=== PATIENT | female | born 1980 | race Caucasian/White ===

== ENCOUNTER 2018-04-02 07:37 | Emergency (ER) | payer BC ==
--- OUTSIDE RECORDS SUMMARY | 2018-04-02 07:43 | XMS REPORT ---
:1980 External Reference #:[id number] Author Organization [facility] Address [address] [place] [address] Phone [phone] Care Team Providers Name Role Phone Preston Hutchinson D.O. 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 Primary Care Physician Unavailable Payers Type Date Identification Numbers Payment Provider Subscriber Commercial Policy Number: [id number] GRACE Zora Cat PayID: [id number] [address] [address] [place] [address] Problems Description No Information Family History Date Family Member(s) Problem(s) Comments Father Hypertension Mother due to Ovarian Cancer () Social History Type Date Description Comments Cigarette Use Never Smoked Cigarettes ETOH Use Current Alcohol Use - 1-3 Days A Week. Recreational Drug Use Never Used Drugs Allergies, Adverse Reactions, Alerts Date Description Reaction Status Severity Comments 11/27/2017 NKDA active Medications Medication Date Status Form Strength Qnty SIG Indications Ordering Provider Percocet Active Tablets 5-325mg 20tabs 1-2 by Walker, 018 mouth Villa, four M.D. times a day as needed for pain Vitamin C Active Capsules Unknown 000 Ambien Active Tablets 5mg 1 tab by Unknown 000 mouth at time of the sleep study Mirena (52 MG) Active IUD 20mcg/24HR Unknown 000 Topiramate ER Active CS24 150mg Unknown 000 Citalopram Active Tablets 40mg 1 by Unknown Hydrobromide 000 mouth every day Xanax Active Tablets Unknown 000 Latoya Allergy Active Tablets Unknown 000 Multivitamin Active Tablets Unknown Adult 000 Fish Oil 00/00/0 Active Capsules 1 by Unknown 000 mouth every day Fiber Active Tablets Unknown 000 Azelastine HCL Active Solution Unknown (Nasal) 000 Sumatriptan Active Tablets Unknown Succinate 000 Vital Signs Date Vital Result Comment 02/26/2018 Weight 190.00 lb Height 65 inches 5'5" BMI (Body Mass Index) 31.6 kg/m2 BP Systolic 140 mmHg pt states she has been stressed this week BP Diastolic 111 mmHg pt states she has been stressed this week Heart Rate 97 /min O2 % BldC Oximetry 98 % Body Temperature 99.1 F Pain Level 2 02/12/2018 Weight 185.00 lb Height 65 inches 5'5" BMI (Body Mass Index) 30.8 kg/m2 BP Systolic 134 mmHg BP Diastolic 106 mmHg Heart Rate 77 /min O2 % BldC Oximetry 98 % Body Temperature 99.4 F Pain Level 3 sinus 01/25/2018 Height 65 inches 5'5" 11/27/2017 Weight 182.00 lb Height 62 inches 5'2" BMI (Body Mass Index) 33.3 kg/m2 BP Systolic 133 mmHg BP Diastolic 95 mmHg Heart Rate 70 /min O2 % BldC Oximetry 98 % Body Temperature 99.6 F Pain Level 0 Results Description No Information Procedures Date CPT Code Description Status 02/03/2018 60741 Stereotactic Computer-Assisted, Cranial, Extradural Completed 02/03/2018 59005 Nasal/Sinus Endosc.W.Explor. Completed 02/03/2018 50548 Nasal/Sinus Endo Inc Sphenoido Completed 02/03/2018 42015 Nasal/Sinus Endosc.W.Max.Antrost. Completed 02/03/2018 17557 Septoplasty Completed 02/03/2018 23008 Submucous Resect.Turb.Par Or Comp Completed 02/03/2018 59344 Anesthesia, Nose & Accessory Sinus Surgery Not Completed Otherwise Spec 11/27/2017 68585 Nasal Endoscopy, Diag. Completed Encounters Type Date Location Provider CPT E/M Office Visit 11/27/2017 12:15p [facility] [place] Walker M.D. [id number]
[2018-04-02 07:54] VITALS: BP 129/82
[2018-04-02] MEDS ORDERED: Tetan/Diph/Pertus SYR(Tdap)* 0.5 ML SYR(BOOSTRIX) use SYR IM ONE (08:04)
[2018-04-02] MEDS ORDERED: Lidocaine 1%* 5 ML VIAL INJ ONE (08:04)
--- NOTE | 2018-04-02 08:11 | UC ---
Laceration HPI - HPI Summary HPI Summary: While doing dishes last night a ceramic dish broke and patient sustained a laceration to the back side of her left hand. This morning it was still bleeding so she came in for evaluation. - History Of Current Complaint Chief Complaint: UCLaceration Stated Complaint: HAND LAC Time Seen by Provider: 04/02/18 07:54 Hx Obtained From: Patient Hx Last Menstrual Period: irreg. Laceration Location: Hand - LEFT Mechanism Of Injury: Sharp Trauma Onset/Duration: Sudden Onset, Lasting Hours, Still Present Severity: Moderate Pain Intensity: 0 Pain Scale Used: 0-10 Numeric Related History: Dominant Hand Right - Allergies/Home Medications Allergies/Adverse Reactions: Allergies Allergy/AdvReac Type Severity Reaction Status Date / Time SEASONAL ALLERGIES Allergy Congestion Uncoded 04/02/18 07:45 PMH/Surg Hx/FS Hx/Imm Hx Neurological History: Migraine Psychological History: Anxiety, Depression - Surgical History Surgical History: Yes Surgery Procedure, Year, and Place: WISDOM TOOTH REMOVED 2011. functional endoscopic sinus surgery - and repair of deviated septum February 03, 2018 - Family History Known Family History: Positive: Hypertension - Social History Alcohol Use: Occasionally Alcohol Amount: 3 DRINKS A MONTH Substance Use Type: None Smoking Status (MU): Former Smoker Type: Cigarettes Amount Used/How Often: 1 PACK A MONTH X 1-2 YRS Length of Time of Smoking/Using Tobacco: 15 years Have You Smoked in the Last Year: No When Did the Patient Quit Smoking/Using Tobacco: 2009 Review of Systems Constitutional: Negative Skin: Other - LACERATION LEFT HAND ENT: Sinus Congestion, Other - EAR FULLNESS Respiratory: Negative Cardiovascular: Negative Gastrointestinal: Negative All Other Systems Reviewed And Are Negative: Yes Physical Exam Triage Information Reviewed: Yes Appearance: Well-Appearing, No Pain Distress, Well-Nourished Vital Signs: Initial Vital Signs Temp 96.4 F 04/02/18 07:50 Pulse 98 04/02/18 07:50 Resp 18 04/02/18 07:50 BP 129/82 04/02/18 07:50 Pulse Ox 99 04/02/18 07:50 Vital Signs Reviewed: Yes Eyes: Positive: Conjunctiva Clear ENT: Positive: Hearing grossly normal, TMs normal Neck: Positive: Supple Respiratory: Positive: No respiratory distress, No accessory muscle use Cardiovascular: Positive: Pulses Normal Abdomen Description: Positive: Soft Musculoskeletal: Positive: No Edema Neurological: Positive: Alert Psychological: Positive: Age Appropriate Behavior Skin: Positive: Other - 2.5CM IRREGULAR LACERATION DORSAL SURFACE LEFT HAND JUST PROXIMAL TO 4TH AND 5TH MCP JOINTS Laceration Repair - Laceration Repair 1 Description: Irregular Laceration Size After Repair: Length (cm) - 2.5cm, Width (mm) - 0mm, Depth (mm) - 2mm Modified For Repair: No Type Injection: Local Anesthesia Used: 1.0% Lido Irrigation With Pressure Irrigation Device: Yes Closure Material: Sutures - 6 simple interrupted Closure Method: Single Layer Suture Of: Skin Suture Type: Prolene - 5-0 prolene Laceration Course/Dx - Course/Dx Course Of Treatment: LACERATION REPAIRED. PT ALSO REQUESTING EARS TO BE EXAMINED FOR FLUID. WAS SEEN AT AN OUTSIDE FACILITY 3 DAYS AGO AND TOLD SHE HAD FLUID IN HER EARS. ON EXAM - NO FLUID SEEN. PT HAS PCP F/U IN 2 WEEKS. - Differential Dx - Laceration/Wound Provider Diagnoses: LACERATION REPAIR LEFT HAND Discharge - Sign-Out/Discharge Documenting (check all that apply): Patient Departure All imaging exams completed and their final reports reviewed: No Studies - Discharge Plan Condition: Stable Disposition: HOME Prescriptions: Cephalexin CAP* [Keflex 500 CAP*] 500 mg PO BID #10 cap Patient Education Materials: Laceration (ED) Referrals: Preston Hutchinson DO [Primary Care Provider] - If Needed Additional Instructions: KEEP DRESSINGS IN PLACE AND DRY FOR THE FIRST 24 HRS. THEN YOU MAY REMOVE THE DRESSING AND GENTLY CLEANSE WITH SOAP AND WATER. PAT DRY AND RE-BANDAGE. APPLY THIN LAYER ANTIBIOTIC OINTMENT UNDER BANDAGE FOR FIRST 3-4 DAYS ONLY. CHANGE BANDAGE DAILY AND NEEDED IF IT BECOMES SOILED OR WET. SEEK FOLLOW-UP IF YOU DEVELOP SPREADING REDNESS OF THE SKIN, PURULENT DRAINAGE, FEVER, INCREASED PAIN OR ANY OTHER CONCERNING SYMPTOMS. RETURN TO HAVE YOUR SUTURES REMOVED IN 10 DAYS - Billing Disposition and Condition Condition: STABLE Disposition: Home
== END 2018-04-02 08:45 | disposition home or self-care (01) ==
LOC: UCEAST 07:37
DX: S61.412A Laceration without foreign body of left hand, initial encounter (principal); W25.XXXA Contact with sharp glass, initial encounter; Y93.G1 Activity, food preparation and clean up; Y92.000 Kitchen of unspecified non-institutional (private) residence as the place of occurrence of the external cause; Z87.891 Personal history of nicotine dependence
CPT/HCPCS: 12001; 90471; 90715; 99212; G0463

== ENCOUNTER 2018-04-12 17:18 | Emergency (ER) | payer BC ==
[2018-04-12 17:39] VITALS: BP 132/86
--- NOTE | 2018-04-12 18:15 | UC ---
Laceration HPI - HPI Summary HPI Summary: 37-year-old woman here for suture removal from a laceration on the whole left hand that was sutured 10 days ago. 6 sutures and there. No signs of infection. He she did hit it about 4 days ago and it did bleed a little bit. Otherwise everything has been fine. - History Of Current Complaint Chief Complaint: UCUpperExtremity Stated Complaint: STITCHES REMOVAL Time Seen by Provider: 04/12/18 18:02 Hx Last Menstrual Period: IUD Pain Intensity: 0 - Allergies/Home Medications Allergies/Adverse Reactions: Allergies Allergy/AdvReac Type Severity Reaction Status Date / Time SEASONAL ALLERGIES Allergy Congestion Uncoded 04/12/18 17:39 PMH/Surg Hx/FS Hx/Imm Hx - Additional Past Medical History Additional PMH: LACERATION - Surgical History Surgical History: Yes Surgery Procedure, Year, and Place: WISDOM TOOTH REMOVED 2011. functional endoscopic sinus surgery - and repair of deviated septum February 03, 2018 - Family History Known Family History: Positive: Hypertension Family History: NON CONTRIBUTORY - Social History Alcohol Use: Occasionally Alcohol Amount: 3 DRINKS A MONTH Substance Use Type: None Smoking Status (MU): Former Smoker Type: Cigarettes Amount Used/How Often: 1 PACK A MONTH X 1-2 YRS Length of Time of Smoking/Using Tobacco: 15 years Have You Smoked in the Last Year: No When Did the Patient Quit Smoking/Using Tobacco: 2009 Review of Systems Constitutional: Negative Skin: Other - See history present illness Eyes: Negative ENT: Negative Respiratory: Negative Cardiovascular: Negative Gastrointestinal: Negative Motor: Negative Neurovascular: Negative Musculoskeletal: Negative Neurological: Negative Psychological: Negative Is Patient Immunocompromised?: No All Other Systems Reviewed And Are Negative: Yes Physical Exam Triage Information Reviewed: Yes Appearance: Well-Appearing, No Pain Distress, Well-Nourished Vital Signs: Initial Vital Signs Temp 98.5 F 04/12/18 17:34 Pulse 89 04/12/18 17:34 Resp 16 04/12/18 17:34 BP 132/86 04/12/18 17:34 Pulse Ox 98 04/12/18 17:34 Vital Signs Reviewed: Yes Eyes: Positive: Conjunctiva Clear Neck exam: Normal Neck: Positive: Supple Respiratory: Positive: No respiratory distress Musculoskeletal Exam: Normal Musculoskeletal: Positive: Strength Intact, ROM Intact Neurological Exam: Normal Neurological: Positive: Alert Psychological Exam: Normal Psychological: Positive: Age Appropriate Behavior Skin: Positive: Other - Dorsum of the left hand over the fifth knuckle has a healed laceration with 6 sutures in it. I removed all 6. No erythema. No drainage no streaking. Laceration Course/Dx - Differential Dx - Laceration/Wound Provider Diagnoses: SUTURE REMOVAL LEFT HAND Discharge - Sign-Out/Discharge Documenting (check all that apply): Patient Departure All imaging exams completed and their final reports reviewed: No Studies - Discharge Plan Condition: Stable Disposition: HOME Patient Education Materials: Stitches Removal (ED) Referrals: Preston Hutchinson DO [Primary Care Provider] - Additional Instructions: FOLLOW UP WITH YOUR DOCTOR IF NOT COMPLETELY IMPROVED. GET RECHECKED FOR ANY WORSENING OF YOUR CONDITION OR QUESTIONS OR CONCERNS. - Billing Disposition and Condition Condition: STABLE Disposition: Home
== END 2018-04-12 18:36 | disposition home or self-care (01) ==
LOC: UCEAST 17:18
DX: S61.412D Laceration without foreign body of left hand, subsequent encounter (principal); X58.XXXD Exposure to other specified factors, subsequent encounter; Z87.891 Personal history of nicotine dependence
CPT/HCPCS: 99212; G0463

== ENCOUNTER 2018-08-05 13:31 | Emergency (ER) | payer BC ==
[2018-08-05 14:02] VITALS: BP 129/86
--- NOTE | 2018-08-05 16:39 | UC ---
Abdominal Pain Female HPI - HPI Summary HPI Summary: 37-year-old female here with a chief complaint of left lower quadrant abdominal pain. Some been going on for 3 weeks. She woke up the night with the pain. Pain is fairly constant it's about a 4 out of 10. No fevers or chills she's been eating and drinking fine normal bowel movements. She does have an IUD. No abnormal vaginal discharge. She does have having occasional dysuria. She was at her [facility] yesterday and reports a normal transvaginal ultrasound with the IUD in place. No diarrhea no blood in stool. No prior abdominal surgeries. Pain stays fairly constant. It is not worse with movement OR leg raising her leg. - History of Current Complaint Chief Complaint: UCAbdominalPain Stated Complaint: LOWER L ABD PAIN Time Seen by Provider: 08/05/18 14:51 Hx Last Menstrual Period: 07/13/18 Pain Intensity: 4 Allergies/Adverse Reactions: Allergies Allergy/AdvReac Type Severity Reaction Status Date / Time SEASONAL ALLERGIES Allergy Congestion Uncoded 08/05/18 14:03 Home Medications: Home Medications Ascorbic Acid TAB* [Vitamin C TAB*] 500 mg PO DAILY 08/05/18 [History Confirmed 08/05/18] Cholecalciferol TAB* [Vitamin D TAB*] 1,000 unit PO DAILY 08/05/18 [History Confirmed 08/05/18] Multivitamins/Minerals TAB* [Theragran/minerals TAB*] 1 tab PO DAILY 08/05/18 [ History Confirmed 08/05/18] Psyllium Husk [Sm Fiber] 400 mg PO DAILY 08/05/18 [History Confirmed 08/05/18] PMH/Surg Hx/FS Hx/Imm Hx Previously Healthy: Yes - Surgical History Surgical History: Yes Surgery Procedure, Year, and Place: WISDOM TOOTH REMOVED 2011. functional endoscopic sinus surgery - and repair of deviated septum February 03, 2018 - Family History Known Family History: Positive: Hypertension Family History: NON CONTRIBUTORY - Social History Alcohol Use: Occasionally Alcohol Amount: 3 DRINKS A MONTH Substance Use Type: None Smoking Status (MU): Former Smoker Type: Cigarettes Amount Used/How Often: 1 PACK A MONTH X 1-2 YRS Length of Time of Smoking/Using Tobacco: 15 years Have You Smoked in the Last Year: No When Did the Patient Quit Smoking/Using Tobacco: 2009 Review of Systems All Other Systems Reviewed And Are Negative: Yes Constitutional: Positive: Negative Skin: Positive: Negative Eyes: Positive: Negative ENT: Positive: Negative Respiratory: Positive: Negative Cardiovascular: Positive: Negative Gastrointestinal: Positive: Abdominal Pain Genitourinary: Positive: Dysuria. Negative: Hematuria, Frequency, Vaginal/ Penile Discharge Motor: Positive: Negative Neurovascular: Positive: Negative Musculoskeletal: Positive: Negative Neurological: Positive: Negative Psychological: Positive: Negative Is Patient Immunocompromised?: No Physical Exam Triage Information Reviewed: Yes Appearance: Well-Appearing, No Pain Distress, Well-Nourished Vital Signs: Initial Vital Signs Temp 98 F 08/05/18 13:59 Pulse 74 08/05/18 13:59 Resp 16 08/05/18 13:59 BP 129/86 08/05/18 13:59 Pulse Ox 100 08/05/18 13:59 Vital Signs Reviewed: Yes Eye Exam: Normal Eyes: Positive: Conjunctiva Clear Neck exam: Normal Neck: Positive: Supple Respiratory: Positive: Lungs clear, Normal breath sounds, No respiratory distress Cardiovascular: Positive: RRR Abdomen Description: Positive: Soft, Other: - MILD TENDERNESS TO PALPATION LLQ. NO REBOUND. NO MASS PALPATED.. Negative: CVA Tenderness (R), CVA Tenderness (L) Musculoskeletal Exam: Normal Musculoskeletal: Positive: Strength Intact, ROM Intact Neurological Exam: Normal Neurological: Positive: Alert, Muscle Tone Normal Psychological Exam: Normal Psychological: Positive: Age Appropriate Behavior Skin Exam: Normal Abd Pain Female Course/Dx - Course Course Of Treatment: Order Information: CT ABD/PEL W/O. Accession Number: [id number]. CPT: 57416. CLINICAL HISTORY: LLQ PAIN. COMPARISON: None. TECHNIQUE: Multiple contiguous axial CT scans were obtained of the abdomen and pelvis,. without intravenous contrast enhancement. Coronal and sagittal multiplanar reformations. are submitted for review. Oral contrast was not administered. FINDINGS: LUNG BASES: The lung bases are clear. LIVER: The liver is normal in shape, size, contour, and attenuation. BILE DUCTS: There is no intrahepatic or extrahepatic biliary dilatation. GALLBLADDER: The gallbladder is normal, without pericholecystic inflammatory change. PANCREAS: The pancreas is normal, without mass or ductal dilatation. SPLEEN: Normal in size and appearance. UPPER GI TRACT: Evaluation of the gastrointestinal tract is limited by incomplete gastric. distention. The upper GI tract is unremarkable. SMALL BOWEL AND MESENTERY: The small bowel is normal in contour, course, and caliber. There is no obstruction or dilatation. COLON: The colon is normal in contour, course, caliber. There is no pericolonic. inflammatory change. ADRENALS: Normal bilaterally. KIDNEYS: The kidneys are normal in shape , size, contour, and axis. There is no. hydronephrosis or nephrolithiasis. BLADDER: The bladder is smooth in contour. PELVIC ORGANS: The uterus and adnexa are grossly normal for technique. An IUD is noted. AORTA: The aorta is normal. IVC: Unremarkable. LYMPH NODES: There is no lymphadenopathy by size criteria. ABDOMINAL WALL: There is no evidence for abdominal wall hernia. BONES AND SOFT TISSUES: Unremarkable. OTHER: None. IMPRESSION: NO HYDRONEPHROSIS OR NEPHROLITHIASIS. NO ACUTE CT PATHOLOGY OF THE VISUALIZED ABDOMEN OR. PELVIS. __. <Electronically signed by Robert Moreno MD in OV> 08/05/18 9945. I discussed the CT report with the patient. Patient had a normal transvaginal ultrasound yesterday. At this time it's not clear cause of the left lower quadrant abdominal pain. Family now is to check a CRP CBC and CMP. Urine was normal. Plan will be to continue use ibuprofen and/or acetaminophen for pain and follow-up with her primary care doctor and her [facility]. At the patient know if she worsens or has any other questions or concerns she needs to be reevaluated right away and if she is getting worse emergency department is the best place for that. - Differential Dx/Diagnosis Provider Diagnosis: Abdominal pain, left lower quadrant Discharge - Sign-Out/Discharge Documenting (check all that apply): Patient Departure All imaging exams completed and their final reports reviewed: Yes - Discharge Plan Condition: Stable Disposition: HOME Patient Education Materials: Acute Abdominal Pain (ED) Referrals: Preston Hutchinson DO [Primary Care Provider] - Antonella Anderson MD [Medical Doctor] - Additional Instructions: FOLLOW UP WITH YOUR PRIMARY CARE DOCTOR AND YOUR OBGYN. GO TO THE EMERGENCY DEPARTMENT FOR ANY WORSENING OF YOUR CONDITION; PAIN, FEVER , VOMITING, BLOOD IN YOUR URINE OR STOOL, YOU FEEL ILL OR QUESTIONS OR CONCERNS. - Billing Disposition and Condition Condition: STABLE Disposition: Home
[2018-08-06 10:45] LABS: ABS Basophils 0 10^3/ul (0-0.2); ABS Eosinophils 0.1 10^3/ul (0-0.6); ABS Lymphocytes 2.4 10^3/ul (1.0-4.8); ABS Monocytes 0.7 10^3/ul (0-0.8); ABS Neutrophils 6.1 10^3/ul (1.5-7.7); ABS Nucleated RBC 0 10^3/ul; Eosinophil % 0.9 %; Hematocrit 45 % (35-47); Hemoglobin 15.1 g/dl (12.0-16.0); Lymphocyte % 25.8 %; Mean Corpuscular HGB Conc 33 g/dl (31-36); Mean Corpuscular Hemoglobin 30 pg (27-31); Mean Corpuscular Volume 89 fL (80-97); Mean Platelet Volume 8.7 fL (7.4-10.4); Nucleated Red Blood Cells % 0.1; Platelet Count 298 10^3/ul (150-450); Red Blood Count 5.09 10^6/ul (4.00-5.40); Red Cell Distribution Width 13 % (10.5-15); White Blood Count 9.3 10^3/ul (3.5-10.8)
[2018-08-06 11:04] LABS: Albumin 4.3 g/dL (3.2-5.2); Albumin/Globulin Ratio 1.6 (1-3); BUN/Creatinine Ratio 28.6 (8-20); C Reactive Protein 5.97 mg/L (<8.01); Calcium 9.4 mg/dL (8.6-10.3); EGFR African American 115.2 (>60); EGFR Non-African American 95.2 (>60); Globulin 2.7 g/dL (2-4); Potassium 4.1 mmol/L (3.5-5.0); Total Bilirubin 0.5 mg/dL (0.2-1.0)
== END 2018-08-05 17:08 | disposition home or self-care (01) ==
LOC: UCEAST 13:31
DX: R10.32 Left lower quadrant pain (principal); R30.0 Dysuria; Z87.891 Personal history of nicotine dependence
CPT/HCPCS: 36415; 74176; 80053; 81003; 84702; 85025; 86140; 99211; G0463